=== PATIENT | female | born 1990 | race Hispanic/Latino ===

== ENCOUNTER 2017-04-04 17:36 | Observation (INO) | payer BC, MEDICAID ==
[2017-04-04 18:36] LABS: APPEARANCE,URINE Turbid (CLEAR); BILIRUBIN,URINE Negative (NEGATIVE); COLOR,URINE Yellow (YELLOW); GLUCOSE, URINE (UA) 250 mg/dL (NEGATIVE); KETONES,URINE Negative (NEGATIVE); LEUKOCYTE ESTERASE ,URINE Small (NEGATIVE); NITRATE,URINE Negative (NEGATIVE); OCCULT BLOOD,URINE Negative (NEGATIVE); PROTEIN,URINE Negative (NEGATIVE)
[2017-04-04 18:44] LABS: AMORPHOUS SEDIMENT,UR Few /LPF (None Seen); BACTERIA,URINE Moderate /HPF (None Seen); RBC,URINE None Seen /HPF (0-1); WBC,URINE 0-1 /HPF (0-1)
[2017-04-04] MEDS ORDERED: LACTATED RINGERS 1000ML 1,000 ML IV SCH (19:45)
[2017-04-04] MEDS ORDERED: ACETAMINOPHEN 325 MG TAB PO ONE (22:00)
[2017-04-05] MEDS ORDERED: CEFTRIAXONE SODIUM 1 GM IV SCH (09:00)
== END 2017-04-04 23:15 | disposition home or self-care (01) ==
LOC: EDH 17:36 → LDH 17:37
PROVIDERS: ADMIT Obstetrics & Gynecology; ATTEND Obstetrics & Gynecology
DX: O26.892 Other specified pregnancy related conditions, second trimester (principal); R50.9 Fever, unspecified; R30.0 Dysuria; O46.92 Antepartum hemorrhage, unspecified, second trimester; Z3A.21 21 weeks gestation of pregnancy
CPT/HCPCS: 81001; 87804 ×2; 96361; 96374; 99285; G0378 ×6; J7120; 96360; J0696

== ENCOUNTER 2017-07-03 05:44 | Observation (INO) | payer MEDICAID ==
[2017-07-03 07:02] LABS: APPEARANCE,URINE Clear (CLEAR); BILIRUBIN,URINE Negative (NEGATIVE); COLOR,URINE Yellow (YELLOW); GLUCOSE, URINE (UA) Negative (NEGATIVE); KETONES,URINE Negative (NEGATIVE); LEUKOCYTE ESTERASE ,URINE Moderate (NEGATIVE); NITRATE,URINE Negative (NEGATIVE); OCCULT BLOOD,URINE Negative (NEGATIVE); PROTEIN,URINE Negative (NEGATIVE); UROBILINOGEN,URINE 0.2 mg/dL (0.2-1.0)
[2017-07-03 07:36] LABS: BACTERIA,URINE Few /HPF (None Seen); RBC,URINE None Seen /HPF (0-1); SQUAMOUS EPITHELIAL CELL,UR Moderate /HPF (0-2)
[2017-07-03] MEDS ORDERED: TERBUTALINE SULFATE VIAL 1MG/ML SQ ONE ×2 (08:02→08:07)
[2017-07-03] MEDS ORDERED: TERBUTALINE SULFATE VIAL 1MG/ML SQ SCH (08:15)
== END 2017-07-03 09:49 | disposition home or self-care (01) ==
LOC: EDH 05:44 → LDH 05:45
PROVIDERS: ADMIT Obstetrics & Gynecology; ATTEND Obstetrics & Gynecology
DX: O26.893 Other specified pregnancy related conditions, third trimester (principal); R10.30 Lower abdominal pain, unspecified; M54.5 Low back pain; Z3A.34 34 weeks gestation of pregnancy
CPT/HCPCS: 81001; 96372 ×2; G0378 ×4; J3105; 96360; 96361

== ENCOUNTER 2017-08-01 09:28 | Observation (INO) | payer MEDICAID ==
[2017-08-01 13:15] LABS: BASOPHILS % (AUTO) 0.6 % (0.0-5.0); HEMATOCRIT 31.2 % (36-48); LYMPHOCYTES % (AUTO) 20.9 % (21.0-51.0); MEAN CORPUSCULAR HEMOGLOBIN 29.3 pg (27.0-33.0); MEAN CORPUSCULAR HGB CONC 33.8 g/dL (32.0-36.0); MEAN CORPUSCULAR VOLUME 86.9 fL (79-99); MONOCYTES % (AUTO) 6.8 % (3.0-13.0); NEUTROPHILS % (AUTO) 70.7 % (40.0-77.0); PLATELET COUNT (AUTO) 210 K/uL (130-400); RED BLOOD CELL COUNT(AUTO) 3.59 MIL/uL (4.00-5.50); RED CELL DISTRIBUTION WIDTH 17.1 % (11.0-15.5); WHITE BLOOD COUNT (AUTO) 7.2 K/uL (4.8-10.8)
== END 2017-08-01 16:00 | disposition home or self-care (01) ==
LOC: LDH 09:28
PROVIDERS: ADMIT Obstetrics & Gynecology; ATTEND Obstetrics & Gynecology
DX: O26.893 Other specified pregnancy related conditions, third trimester (principal); R42 Dizziness and giddiness; Z3A.38 38 weeks gestation of pregnancy
CPT/HCPCS: 36415; 85025; G0378 ×8

== ENCOUNTER 2017-08-04 21:35 | Inpatient (IN) | payer MEDICAID ==
[~2017-08-04] VITALS: Ht 152.4 cm; Wt 67.6 kg
[2017-08-04 22:23] LABS: BILIRUBIN,URINE Negative (NEGATIVE); COLOR,URINE Yellow (YELLOW); GLUCOSE, URINE (UA) Negative (NEGATIVE); KETONES,URINE Negative (NEGATIVE); LEUKOCYTE ESTERASE ,URINE Small (NEGATIVE); NITRATE,URINE Negative (NEGATIVE); OCCULT BLOOD,URINE Negative (NEGATIVE); PROTEIN,URINE Trace (NEGATIVE)
[2017-08-04 22:25] LABS: APPEARANCE,URINE SLIGHTLY CLOUDY (CLEAR)
[2017-08-04] MEDS ORDERED: LACTATED RINGERS 1000ML 1,000 ML IV SCH (22:45)
[2017-08-04 22:59] LABS: AMORPHOUS SEDIMENT,UR Moderate /LPF (None Seen); BACTERIA,URINE Few /HPF (None Seen); MUCUS,URINE Few LPF (None Seen); RBC,URINE 0-1 /HPF (0-1)
[2017-08-05] MEDS ORDERED: OXYTOCIN 10 USP UNITS/ML ONE (06:38)
[2017-08-05] MEDS ORDERED: LACTATED RINGERS 1000ML 1,000 ML IV ONE (06:38)
[2017-08-05] MEDS ORDERED: OXYTOCIN 10 USP UNITS/ML 20 UNIT in LACTATED RINGERS 1000ML 1,000 ML IV SCH (06:45)
[2017-08-05 06:56] LABS: HEMATOCRIT 32.6 % (36-48); MEAN CORPUSCULAR HEMOGLOBIN 29.9 pg (27.0-33.0); MEAN CORPUSCULAR VOLUME 87.8 fL (79-99); NUCLEATED RED BLOOD CELLS 0.1 % (0.0-0.19); PLATELET COUNT (AUTO) 205 K/uL (130-400); RED BLOOD CELL COUNT(AUTO) 3.71 MIL/uL (4.00-5.50); WHITE BLOOD COUNT (AUTO) 7.9 K/uL (4.8-10.8)
[2017-08-05] MEDS ORDERED: PROMETHAZINE HCL 25 MG/ML 1ML AMPULE IM SCH (11:30)
[2017-08-05] MEDS ORDERED: MEPERIDINE-PF 50 MG/ML SYG IVP SCH (11:30)
[2017-08-05] MEDS ORDERED: MEPERIDINE-PF 50 MG/ML SYG ONE (11:33)
[2017-08-05] MEDS ORDERED: PROMETHAZINE HCL 25 MG/ML 1ML AMPULE IM ONE (11:33)
[2017-08-05] MEDS ORDERED: LACTATED RINGERS 500 ML 500 ML IV PRN (14:15)
[2017-08-05] MEDS ORDERED: NALOXONE HCL 0.4 MG/1 ML ML IV PRN (14:15)
[2017-08-05] MEDS ORDERED: EPHEDRINE SULFATE 50 MG/ML AMPULE IVP PRN ×2 (14:15→21:30)
[2017-08-05] MEDS ORDERED: IBUPROFEN 600 MG TABLET PO PRN (15:30)
[2017-08-05] MEDS ORDERED: DIPH,PERTUSS(ACELL),TET VAC/PF 0.5 ML VIAL IM PRN (15:30)
[2017-08-05] MEDS ORDERED: WITCH HAZEL 1 PAD TP PRN (15:30)
[2017-08-05] MEDS ORDERED: OXYTOCIN-LR 20 UNITS/1000 ML 1,000 ML IV SCH (15:30)
[2017-08-05] MEDS ORDERED: HYDROCODONE/ACETAMINOPHEN 5/325 MG TAB PO PRN ×3 (15:30→21:30)
[2017-08-05] MEDS ORDERED: LANOLIN 30GM OINTMENT TP PRN (15:30)
[2017-08-05] MEDS ORDERED: ACETAMINOPHEN 325 MG TAB PO PRN (15:30)
[2017-08-05] MEDS ORDERED: MEASLES/MUMPS/RUBELLA VACCINE, LIVE 0.5 ML/VIAL SQ PRN (15:30)
[2017-08-05] MEDS ORDERED: BENZOCAINE/LANOLIN/ALOE VERA 60 ML AEROSOL TP PRN (15:30)
[2017-08-05] MEDS ORDERED: DURAMORPH PF1 MG/ML 10ML AMP IV ONE (15:55)
[2017-08-05 17:40] VITALS: BP 115/72
[2017-08-05] MEDS ORDERED: DiphenhydrAMINE HCL 50 MG/ML VIAL ONE (19:32)
[2017-08-05 19:40] VITALS: BP 112/65
[2017-08-05] MEDS ORDERED: MORPHINE SULFATE 2 MG/ML 1ML SYG IVP PRN (21:30)
[2017-08-05] MEDS ORDERED: ONDANSETRON HCL MDV 20ML 2 MG/ML VIAL IVP PRN (21:30)
[2017-08-05] MEDS ORDERED: METOCLOPRAMIDE 10 MG/2 ML VIAL IVP PRN (21:30)
[2017-08-05] MEDS ORDERED: NALOXONE HCL 0.4 MG/1 ML ML IVP PRN (21:30)
[2017-08-05] MEDS ORDERED: PROMETHAZINE HCL 25 MG/ML 1ML AMPULE IM PRN (21:30)
[2017-08-05] MEDS ORDERED: ONDANSETRON HCL 4 MG/2 ML 8 MG in SODIUM CHLORIDE 0.9% 50 ML IVP NR (21:30)
[2017-08-05] MEDS ORDERED: DiphenhydrAMINE HCL 50 MG/ML VIAL IVP PRN (21:30)
[2017-08-05] MEDS ORDERED: ONDANSETRON HCL 4 MG/2 ML VIAL IVP PRN (21:30)
[2017-08-05] MEDS: DOCUSATE SODIUM 100 MG CAP PO SCH (21:37)
[2017-08-05 23:30] VITALS: BP 99/56
[2017-08-06 03:20] VITALS: BP 105/71
[2017-08-06 06:50] LABS: HEMATOCRIT 32.3 % (36-48); MEAN CORPUSCULAR HEMOGLOBIN 29.3 pg (27.0-33.0); MEAN CORPUSCULAR HGB CONC 33.7 g/dL (32.0-36.0); MEAN CORPUSCULAR VOLUME 86.7 fL (79-99); PLATELET COUNT (AUTO) 199 K/uL (130-400); RED BLOOD CELL COUNT(AUTO) 3.72 MIL/uL (4.00-5.50); RED CELL DISTRIBUTION WIDTH 17.1 % (11.0-15.5); WHITE BLOOD COUNT (AUTO) 14.8 K/uL (4.8-10.8)
[2017-08-06 07:16] VITALS: BP 91/54
[2017-08-06 07:25] LABS: HEPATITIS Bs ANTIGEN SCREEN P Negative (Negative)
[2017-08-06] MEDS ORDERED: SODIUM CHLORIDE 0.9% 1000ML 1,000 ML IV ONE (07:45)
[2017-08-06] MEDS: DOCUSATE SODIUM 100 MG CAP PO SCH (09:29)
[2017-08-06] MEDS ORDERED: BUTALB/ACETAMINOPHEN/CAFFEINE 1 EACH TABLET PO PRN (11:30)
[2017-08-06 11:38] VITALS: BP 97/52
== END 2017-08-06 15:25 | disposition home or self-care (01) | DRG 560 ==
LOC: EDH 21:35 → LDH 21:36 → OBSVTOIN 21:36 → WSH 08-05 16:43
PROVIDERS: ADMIT Obstetrics & Gynecology; ATTEND Obstetrics & Gynecology
PROC: 10E0XZZ Delivery of Products of Conception, External Approach (ICD-10-PCS; principal; 2017-08-05)
PROC: 3E0234Z Introduction of Serum, Toxoid and Vaccine into Muscle, Percutaneous Approach (ICD-10-PCS; 2017-08-05)
PROC: 3E0134Z Introduction of Serum, Toxoid and Vaccine into Subcutaneous Tissue, Percutaneous Approach (ICD-10-PCS; 2017-08-05)
DX: O36.8130 Decreased fetal movements, third trimester, not applicable or unspecified (principal); Z37.0 Single live birth; Z3A.39 39 weeks gestation of pregnancy
CPT/HCPCS: 36415; 76819; 81001; 85025; 85027; 86592; 86850; 86900; 86901; 87340; A4314; G0378; J1200; J2175; J2274; J2550; J2590; J7120

== ENCOUNTER 2017-08-08 13:04 | Emergency (ER) | payer MEDICAID ==
[2017-08-08] MEDS ORDERED: SODIUM CHLORIDE 0.9% 1000ML 1,000 ML IV ONE (13:40)
[2017-08-08] MEDS ORDERED: ONDANSETRON HCL MDV 20ML 2 MG/ML VIAL ONE (13:56)
[2017-08-08] MEDS ORDERED: MIDAZOLAM HCL 1 MG/ML 2ML VIAL ONE (13:57)
[2017-08-08] MEDS ORDERED: FENTANYL CITRATE PF 50 MCG/1 ML 2ML VIAL ONE (14:17)
[2017-08-08] MEDS ORDERED: BUTALB/ACETAMINOPHEN/CAFFEINE 1 EACH TABLET PO ONE (14:37)
== END 2017-08-08 16:38 | disposition home or self-care (01) ==
LOC: EDH 13:04
DX: O90.89 Other complications of the puerperium, not elsewhere classified (principal); G97.1 Other reaction to spinal and lumbar puncture; Z79.899 Other long term (current) drug therapy
CPT/HCPCS: 96374; 99284; J3010; J7030; J2250

== ENCOUNTER 2019-05-08 18:12 | Emergency (ER) | payer MEDICAID, OTHER ==
[2019-05-08] MEDS ORDERED: DEXAMETHASONE SOD PHOSPHATE 10MG/ML 1ML VIAL ONE (18:32)
[2019-05-08] MEDS ORDERED: PROCHLORPERAZINE EDISYLATE 10 MG/2 ML VIAL ONE (18:32)
[2019-05-08] MEDS ORDERED: DIPHENHYDRAMINE HCL 25 MG CAPSULE ONE (18:32)
[2019-05-08] MEDS ORDERED: SODIUM CHLORIDE 0.9% 1000ML 1,000 ML IV ONE (18:33)
== END 2019-05-08 19:25 | disposition home or self-care (01) ==
LOC: EDH 18:12
DX: G43.909 Migraine, unspecified, not intractable, without status migrainosus (principal); R11.0 Nausea; Z98.51 Tubal ligation status
CPT/HCPCS: 96374; 96375; 99284; J0780; J1100; J7030; Q0163